=== PATIENT | female | born 1990 | race Asian ===

== ENCOUNTER 2020-11-09 11:36 | Outpatient (REF) | payer OTHER, SELFPAY ==
--- NOTE | 2020-11-09 11:43 | XR_ITS ---
EXAMINATION: XR HIP, RIGHT CLINICAL INFORMATION: Right hip sprain. COMPARISON: None TECHNIQUE: AP pelvis and 2 views of the right hip. FINDINGS: AP PELVIS: There is normal symmetry of bilateral hip joints and SI joints. No visible fracture, dislocation or bony erosive changes. RIGHT HIP: AP and frog-leg views right hip reveal maintained right hip joint space. No fracture or bony erosive changes or spurring. The soft tissues are normal. XR/XR hip RT w PEL1V IMPRESSION: Unremarkable AP pelvis and right hip exam.
== END 2020-11-09 11:37 | disposition home or self-care (01) ==
LOC: HO.XRAY 11:36
PROVIDERS: PCP Internal Medicine; Visit Provider Internal Medicine
DX: S73.101A Unspecified sprain of right hip, initial encounter (principal)
CPT/HCPCS: 73502

== ENCOUNTER → 2022-04-16 15:05 | Outpatient (BNVA) | payer OTHER, SELFPAY | PROVIDERS: PCP Internal Medicine; Visit Provider Nurse Practitioner Family | DX: O99.891 Other specified diseases and conditions complicating pregnancy (principal); M54.16 Radiculopathy, lumbar region; M46.1 Sacroiliitis, not elsewhere classified; M54.31 Sciatica, right side; G89.29 Other chronic pain; M25.551 Pain in right hip; Z3A.00 Weeks of gestation of pregnancy not specified | CPT/HCPCS: 99202 ==

== ENCOUNTER 2023-08-27 08:48 | Outpatient (REF) | payer OTHER, SELFPAY ==
[2023-08-27 09:59] LABS: Hemoglobin 7.8 g/dl (12.0-16.0); Mean Corpuscular HGB Conc 26.9 g/dl (31.0-35.0); Mean Corpuscular Hemoglobin 14.2 pg (27.0-33.0); NRBC Pct Auto 0.2 /100WBC (0.0-0.2); Red Blood Count 5.49 X10*6/uL (4.20-5.50); Red Cell Distribution Width 24.1 % (11.0-16.0)
[2023-08-27 10:02] LABS: Mean Corpuscular Volume 52.8 fL (80.0-98.0)
[2023-08-27 10:03] LABS: White Blood Count 11.9 X10*3/uL (4.8-10.8)
[2023-08-27 10:13] LABS: Appearance Urine Clear; Color Urine Yellow; Glucose Urine UA Negative (Negative); Leukocyte Esterase Urine Negative (Negative); Nitrite Urine Negative (Negative); PH 5.5 (5.0-9.0); Urine Blood Negative (Negative); Urine Ketones Negative (Negative); Urine Protein Negative (Neg-Trace)
[2023-08-27 10:45] LABS: Platelet Count 344 X10*3/uL (160-400)
[2023-08-27 10:51] LABS: Alanine Aminotransferase 15 U/L (0-31); Albumin Level 4.1 g/dL (3.5-5.0); Alkaline Phosphatase 60 U/L (39-117); Anion Gap 11 (12-20); Aspartate Amino Transferase 15 U/L (5-31); Bilirubin Direct 0.1 mg/dL (0.0-0.5); Bilirubin Total 0.3 mg/dL (0.0-1.0); Blood Urea Nitrogen 11 mg/dL (9-16); Calcium 9.2 mg/dL (8.4-10.2); Carbon Dioxide 23 mmol/L (22-29); Chloride 108 mmol/L (96-108); Estimated Glomerular Filt Rate > 60; Glucose Random 95 mg/dL (60-115); Potassium 4.1 mmol/L (3.3-5.1); Sodium 138 mmol/L (135-145); Total Protein 7.4 g/dL (6.5-8.0)
[2023-08-27 10:52] LABS: Thyroid Stimulating Hormone 1.93 uIU/mL (0.32-4.0)
[2023-08-27 10:59] LABS: Estimated Average Glucose 94 mg/dL; Hemoglobin A1c % 4.9 % (<6.0)
== END 2023-08-27 08:49 | disposition home or self-care (01) ==
LOC: HO.LAB 08:48
PROVIDERS: PCP Internal Medicine; Visit Provider Internal Medicine
DX: R73.9 Hyperglycemia, unspecified (principal)
CPT/HCPCS: 36415; 80048; 80076; 81003; 83036; 84443; 85027

== ENCOUNTER 2023-09-05 09:33 | Outpatient (AMB) | payer OTHER, SELFPAY ==
--- NOTE | 2023-09-05 09:39 | MHC.PC.OV ---
Vital Signs 09/05/23 09:40 Height 4 ft 11 in Weight 135 lb 4 oz BMI 27.3 BP 120/74 Blood Pressure Location Lt brachial Position Sitting Pulse 79 Pulse Source Pulse Oximeter Pulse Oximetry (%) 100 Oxygen Delivery Method Room Air Intake Visit Reasons: Lab Results Intake Note: Patient is here to follow up on Lab results. Teletype Technician Required: No Junior Programmer Analyst: Present Accompanied by: Spouse Allergies No Known Allergies Allergy (Verified 09/15/23 13:36) Medication List - Last Reconciled 09/15/23 by Golden Leon MD ferrous sulfate ER (Slow Fe) 137 mg PO .once a day hydrocortisone 2.5% 1 appl topical BID PRN omeprazole 20 mg PO DAILY Tobacco use date assessed: 09/05/23 Dental Screening Dental Screen Date: 09/05/23 Did you have a dental visit in the last 12 months?: No Did you have a dental problem in the last 6 months where you did not have access to dental care?: No Was dental information given to patient?: Patient has dentist HPI Lab Results HPI Details 33 yr old female presents to the office for a sick visit. Patient is accompanied by her . She had blood work done and would like to know the result. Complains of tiredness and dizziness. No nausea or vomiting. Monthly cycle is 8 days long. No clots. [facility] Surgical History No history of previous surgery Family History Mother No problems noted. Father No problems noted. Housing: House Alcohol intake: never Patient Tobacco Use Status: Never used Tobacco e-Cigarette/Vaping Use: Never Used Second Hand Smoke Exposure: No service: No Current occupational status: unemployed Cognitive needs: No Hearing needs: No Vision needs: No Questionnaire Thrive Questionnaire Date Thrive assessed: 04/04/23 CLARENCE-7 AMB Questionnaire CLARENCE-7 Date CLARENCE - 7 assessed: 04/04/23 Source: Developed by Drs. Gómez Lynn, Reyna Sanchez, Jorge Alberto Tinoco and colleagues, with an educational madison from [employer]. Physical exam (Primary Care) Vital Signs: Last Vital Signs Pulse 79 09/05/23 09:40 BP 120/74 09/05/23 09:40 Pulse Ox 100 09/05/23 09:40 Oxygen Delivery Method Room Air 09/05/23 09:40 BMI result Body Mass Index 27.3 Tobacco/Smoking Status: Tobacco use Status Tobacco use date assessed 09/05/23 09/05/23 09:55 Patient Tobacco Use Status Never used Tobacco 09/05/23 09:55 e-Cigarette/Vaping Use Never Used 09/05/23 09:55 Thrive Assessment: Date of Thrive Assessment Date Thrive assessed 04/04/23 09/05/23 09:55 Const General: cooperative and healthy appearing Nutritional Appearance: well nourished Orientation/consciousness: patient oriented x3 Limitations: no limitations HENMT Head: Yes normal to inspection Eyes General: appearance normal, both eyes and all related structures Neck Neck: Yes normal visual inspection Chest Chest palpation & inspection: normal palpation of entire chest wall Resp Effort & Inspection: normal respiratory effort Neuro General: patient oriented x3 Office Procedures Flu Questionnaire Does the patient have a severe egg allergy?: No Does the patient have severe life threatening allergies?: No Does the patient have a fever or illness today?: No Has the patient ever had Guillain-[place] Syndrome?: No Has the patient ever had any past reaction to a flu shot?: No Immunizations flu vacc [id number] 6mos up(PF) 60 mcg(15 mcgx4)/0.5 mL IM syringe Performing Provider: Golden Leon MD Performing Location: [facility] Administered by: LUL Mcmahon on 09/05/23 10:20 Dose Route Admin Location Dispensed Lot Number Expiration Date NDC Hydraulic Jack Mechanic 0.5 mL IM Left Deltoid 0.5 mL [id number] 04/19/24 91376-433-09 [employer] [place] VIS Given Date VIS Provided VIS Publication Date 09/05/23 Single Vaccine 21 Eligibility Eligibility Date Funding Source Not [facility] Eligible 09/05/23 Private Assessment and Plan Assessment & Plan (1) Hyperglycemia: Code(s): R73.9 - Hyperglycemia, unspecified Plan: A1c is checked. No evidence of DM. (2) Anemia: Code(s): D64.9 - Anemia, unspecified Plan: Low iron. Would benefit from iron infusion. Referral to financial services technician made. Orders: Orders Influenza [id number] Immunization 09/05/23 Z23 - Encounter for immunization Coding Level of Care Code Est Pt Level 4 (14429) Diagnoses Hyperglycemia R73.9 Anemia D64.9
[2023-09-05 09:40] VITALS: BP 120/74; PULSE 79; O2SAT 100; BMI 27.3
== END 2023-09-05 11:19 | disposition home or self-care (01) ==
PROVIDERS: PCP Internal Medicine; Visit Provider Internal Medicine
DX: Z23 Encounter for immunization (principal)
CPT/HCPCS: 90471; 90686; 99214

== ENCOUNTER → 2023-09-17 13:00 | Outpatient (BNV) | payer OTHER, SELFPAY | PROVIDERS: PCP Internal Medicine; Visit Provider Internal Medicine Medical Oncology | DX: O99.019 Anemia complicating pregnancy, unspecified trimester (principal); Z3A.24 24 weeks gestation of pregnancy | CPT/HCPCS: 99204; 99213 ==

== ENCOUNTER 2023-09-30 08:36 | Outpatient (REF) | payer OTHER, SELFPAY | END 2023-09-30 08:37 | disposition home or self-care (01) | LOC: HO.MDS 08:36 | PROVIDERS: Visit Provider Internal Medicine Medical Oncology | DX: D50.8 Other iron deficiency anemias (principal) | CPT/HCPCS: 96365; 96375; J1200; J1439 ==

== ENCOUNTER 2024-02-04 10:10 | Outpatient (AMB) | payer OTHER, SELFPAY ==
--- NOTE | 2024-02-04 10:13 | MHC.OFFVIS ---
Intake Vital Signs 02/04/24 10:14 Height 5 ft Weight 134 lb 7.712 oz BMI 26.3 BP 100/62 Blood Pressure Location Lt brachial Position Sitting Pulse 77 Pulse Source Pulse Oximeter Pulse Oximetry (%) 99 Oxygen Delivery Method Room Air Intake Visit Reasons: Cough Intake Note: pt is here for chest congestion and states it is tight in there Long Winder Tender Required: No Allergies No Known Allergies Allergy (Verified 02/04/24 10:18) Medication List - Last Reconciled 02/04/24 by Tello Lockwood MD ferrous sulfate ER (Slow Fe) 137 mg PO .once a day omeprazole 20 mg PO DAILY Do you need a note to return to daycare/school/sports/work: No HPI Cough HPI Details 33 years old female , of [place] origin, who has been here in [facility] for the last 2-3 years. 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 Generally healthy but lately was found to have mild anemia. She has history of intermittent bouts of cough since about 8 or 9 years ago. Back in [place] on she was told that she may have an asthma variant. At 1 time she was prescribed a bronchodilator inhaler which she used only a few times. Cough comes off and on, and she does not know of any precipitating factors. Sometime cough is associated with chest congestion and discomfort. At present she has discomfort in the left upper chest to but not associated with cough. The discomfort is in the left costochondral area, The only possible reason seems that she has to corn picker her daughter frequently. When she has cough which is mostly nonproductive, and not associated with wheezing. Patient is nonsmoker. She can not identify any specific allergies. She does have history of GERD symptoms which are being treated with omeprazole. She is not prone to have recurrent respiratory infections. ON LICENSE OF [facility] Medical History Cough Chest pain Surgical History No history of previous surgery Family History Mother No problems noted. Father No problems noted. Social History Housing: House Alcohol intake: never Patient Tobacco Use Status: Never used Tobacco e-Cigarette/Vaping Use: Never Used Second Hand Smoke Exposure: No service: No Current occupational status: unemployed Cognitive needs: No Hearing needs: No Vision needs: No Review of Systems Const All systems reviewed & are unremarkable except as noted in HPI and below Eyes Reports no additional complaints ENT Reports no additional complaints Card Reports chest pain (Nonspecific in left upper chest), Denies syncope, Denies rapid heart rate and Denies irregular heart rhythm Resp Reports as per HPI GI Reports heartburn (Being treated with omeprazole) Reports no additional complaints Musc Reports no additional complaints Skin/Breast Reports system reviewed and no additional complaints, except as documented Neuro Reports no additional complaints and Denies syncope Psych Reports no additional complaints Endo Reports no additional complaints Jozef/Lymph Reports no additional complaints Aller/Immun Reports no additional complaints Physical Exam Vital Signs: Last Vital Signs Pulse 77 02/04/24 10:14 BP 100/62 02/04/24 10:14 Pulse Ox 99 02/04/24 10:14 Oxygen Delivery Method Room Air 02/04/24 10:14 BMI result Body Mass Index 26.3 Const General: healthy appearing, comfortable, no acute distress, alert and awake Orientation/consciousness: patient oriented x3 HEENT Head: Yes normal to inspection General nose exam: No nasal polyps present and No nasal discharge present Face and sinus: Yes sinuses nontender Mouth: oropharynx normal Throat: Yes posterior oropharynx normal Eyes General: appearance normal, both eyes and all related structures Neck Neck: Yes normal visual inspection, Yes no lymphadenopathy, Yes trachea midline and Yes no JVD Thyroid: Thyroid normal Chest Chest palpation & inspection: normal inspection of the chest, normal palpation of entire chest wall and no tenderness Resp Effort & Inspection: normal respiratory effort Auscultation: clear to auscultation bilaterally, no crackles and no wheezes Cardio Palpation: normal PMI Rate: regular rate Rhythm: regular rhythm Heart sounds: no gallops and no murmurs Peripheral pulses: Peripheral pulses 2+ throughout GI Palpation (GI): Soft to palpation, nontender, No hepatosplenomegaly present and no masses Auscultation: normal bowel sounds Back/Spine/Pelvis Thoracic/Lumbar Spine: thoracic and lumbar spine normal to inspection Skin General skin exam: no rashes or lesions noted Neuro General: patient oriented x3 and no focal motor deficits Cranial nerves: Yes CN's II-XII intact bilaterally Extrem General: Yes normal to inspection, Yes no clubbing, cyanosis or edema and Yes no calf tenderness Psych Speech and movement: Normal speech and movement present Assessment & Plan Assessment & Plan (1) Chest pain: Comment: Nonspecific discomfort in left pectoral area, probably secondary to cost 2 chondral strain. Not very symptomatic at this time. Code(s): R07.9 - Chest pain, unspecified Plan: Explained about the nature of this problem. Advised to refrain from lifting heavy objects. May use warm packs locally 2 or 3 times a day as needed. CHEST X-RAY IS ORDERED TO RULE OUT ANY UNDERLYING CHEST ABNORMALITY. (2) Cough: Comment: CHRONIC INTERMITTENT COUGH, MOST LIKELY ASTHMA VARIANT. Explained to the patient thoroughly. Code(s): R05.9 - Cough, unspecified Plan: PULMONARY FUNCTION TEST TO RULE OUT ANY BRONCHOSPASM. WILL DECIDE ABOUT TREATMENT PLAN AFTER THE PFT. Orders: Orders XR chest 2V Today R05.9 - Cough, unspecified, R07.9 - Chest pain, unspecified PFT pulmonary function test Today R05.9 - Cough, unspecified, R07.9 - Chest pain, unspecified Coding Level of Care Code New Pt Level 3 (00777) Diagnoses Chest pain R07.9 Cough R05.9
[2024-02-04 10:14] VITALS: BP 100/62; PULSE 77; O2SAT 99; BMI 26.3
== END 2024-02-04 10:32 | disposition home or self-care (01) ==
PROVIDERS: PCP Internal Medicine; Visit Provider Internal Medicine
DX: R07.9 Chest pain, unspecified (principal); R05.9 Cough, unspecified
CPT/HCPCS: 99203

== ENCOUNTER 2024-02-04 10:10 | Outpatient (REF) | payer OTHER, SELFPAY | END 2024-02-04 10:11 | disposition home or self-care (01) | LOC: HO.XRAY 10:10 | PROVIDERS: PCP Internal Medicine; Visit Provider Internal Medicine | DX: R07.9 Chest pain, unspecified (principal); R05.9 Cough, unspecified | CPT/HCPCS: 99202 ==

== ENCOUNTER 2024-03-25 14:17 | Outpatient (AMB) | payer OTHER, SELFPAY ==
--- NOTE | 2024-03-25 14:24 | A.OFFPC_ITS ---
Vital Signs 03/25/24 14:27 Height 5 ft Weight 138 lb 6 oz BMI 27.0 BP 100/62 Blood Pressure Location Lt brachial Position Sitting Pulse 94 Pulse Source Pulse Oximeter Pulse Oximetry (%) 98 Oxygen Delivery Method Room Air Intake Visit Reasons: L ARM PAIN/CP/CARDIO REFERRAL/NEEDS PHQ9 Intake Note: Patient is here to follow up on left arm pain, Tracer Lathe Set Up Operator Required: No Insurance Commissioner: Present Accompanied by: Spouse Allergies No Known Allergies Allergy (Verified 03/25/24 16:03) Medication List - Last Reconciled 03/25/24 by Golden Leon MD ferrous sulfate ER (Slow Fe) 45 mg (0.3285 x 137 mg (45 mg iron)) PO DAILY ferrous sulfate ER (Slow Fe) 137 mg PO .once a day folic acid 0.4 mg PO DAILY omeprazole 20 mg PO DAILY Tobacco use date assessed: 03/25/24 Dental Screening Dental Screen Date: 03/25/24 Did you have a dental visit in the last 12 months?: No Did you have a dental problem in the last 6 months where you did not have access to dental care?: No Was dental information given to patient?: Patient has dentist HPI L ARM PAIN/CP/CARDIO REFERRAL/NEEDS PHQ9 HPI Details 33-year-old female presents to the [facility] for a sick visit. Patient reports some stiffness in the left arm. Unrelated to exercise. Happens once or twice a week. Patient was apprehensive that it could be of cardiac etiology. No shortness of breath or palpitations. Recently seen by a chief nursing officer for iron deficiency anemia. Patient could not tolerate iron infusion. Now taking iron medications. Patient is 3 months . [facility] Medical History Cough Chest pain Surgical History No history of previous surgery Family History Mother No problems noted. Father No problems noted. Social History Housing: House Alcohol intake: never Patient Tobacco Use Status: Never used Tobacco e-Cigarette/Vaping Use: Never Used Second Hand Smoke Exposure: No service: No Current occupational status: unemployed Cognitive needs: No Hearing needs: No Vision needs: No Questionnaire PHQ-9 Over the last 2 weeks, how often have you been bothered by any of the following problems? 1. Little interest or pleasure in doing things: not at all 2. Feeling down, depressed, or hopeless: not at all 3. Trouble falling or staying asleep, or sleeping too much: not at all 4. Feeling tired or having little energy: not at all 5. Poor appetite or overeating: not at all 6. Feeling bad about yourself - or that you are a failure or have let yourself or your family down: not at all 7. Trouble concentrating on things, such as reading the newspaper or watching television: not at all 8. Moving or speaking so slowly that other people could have noticed. Or the opposite - being so fidgety or restless that you have been moving around a lot more than usual: not at all 9. Thoughts that you would be better off or of hurting yourself in some way: not at all Total score: 0 Depression Screening Interpretation: Negative Depression Screening Done: Yes Source: Developed by Drs. Gómez Lynn, Reyna Sanchez, Jorge Alberto Tinoco and colleagues, with an educational madison from [employer]. Thrive Questionnaire Date Thrive assessed: 03/25/24 I am a: Patient What is your living situation today?: I have a steady place to live Within the past 12 months, did the food you bought not last and you didn't have the money to get more?: Never true Within the past 12 months, did you worry whether your food would run out before you got money to buy more?: Never true Do you have trouble paying for medicines?: No Do you have trouble getting transportation to medical appointments?: No Do you have trouble paying your heating and electricity bill?: No Do you have trouble taking care of your child, family member or friend?: No Do you have trouble with day-to-day activities such as bathing, preparing meals, shopping, managing finances, etc.?: No Are you currently unemployed and looking for a job?: No Are you interested in more education?: No Currently or been in a relationship where the following occur: no concerns reported THRIVE Score: 0 AUDIT C Alcohol Use Questionnaire (AUDIT-C) 1. How often do you have a drink containing alcohol?: Never Total Score: 0 CLARENCE-7 AMB Questionnaire CLARENCE-7 Date CLARENCE - 7 assessed: 03/25/24 Feeling nervous, anxious, or on edge: 0 = Not at all Not being able to stop or control worryin = Not at all Worrying too much about different things: 0 = Not at all Trouble relaxin = Not at all Being so restless that it is hard to sit still: 0 = Not at all Becoming easily annoyed or irritable: 0 = Not at all Feeling afraid as if something awful might happen: 0 = Not at all Total CLARENCE-7 score (0-4 normal; 5-9 mild; 10-14 moderate; 15-21 severe): 0 Source: Developed by Drs. Gómez Lynn, Reyna Sanchez, Jorge Alberto Tinoco and colleagues, with an educational madison from [employer]. Physical exam (Primary Care) Vital Signs: Last Vital Signs Pulse 94 03/25/24 14:27 BP 100/62 03/25/24 14:27 Pulse Ox 98 03/25/24 14:27 Oxygen Delivery Method Room Air 03/25/24 14:27 BMI result Body Mass Index 27.0 Tobacco/Smoking Status: Tobacco use Status Tobacco use date assessed 03/25/24 03/25/24 14:27 Patient Tobacco Use Status Never used Tobacco 03/25/24 14:27 e-Cigarette/Vaping Use Never Used 03/25/24 14:27 PHQ-9: PHQ-9 Score PHQ-9: Total score 0 03/25/24 14:27 Depression Screening Interpretation: Negative Thrive Assessment: Date of Thrive Assessment Date Thrive assessed 03/25/24 03/25/24 14:27 Currently or been in a relationship where the following occur: no concerns reported Const General: cooperative and healthy appearing Nutritional Appearance: well nourished Orientation/consciousness: patient oriented x3 Limitations: no limitations HENMT Head: Yes normal to inspection Eyes General: appearance normal, both eyes and all related structures Neck Neck: Yes normal visual inspection Chest Chest palpation & inspection: normal palpation of entire chest wall Resp Effort & Inspection: normal respiratory effort Neuro General: patient oriented x3 Assessment and Plan Assessment & Plan (1) Left forearm pain: Code(s): M79.632 - Pain in left forearm Plan: Very unlikely cardiac etiology...Reassurance Medications: Refilled omeprazole 20 mg PO DAILY 90 caps 1RF Coding Level of Care Code Est Pt Level 3 (45577) Complex EM visit Add On G2211 Diagnoses Left forearm pain M79.632
[2024-03-25 14:27] VITALS: BP 100/62; PULSE 94; O2SAT 98; BMI 27.0
== END 2024-03-25 16:17 | disposition home or self-care (01) ==
PROVIDERS: PCP Internal Medicine; Visit Provider Internal Medicine
DX: M79.632 Pain in left forearm (principal)
CPT/HCPCS: 99213; G2211

== ENCOUNTER 2024-04-07 | Outpatient (REF) | payer OTHER, SELFPAY | END 2024-04-07 00:01 | disposition home or self-care (01) | LOC: HO.RESP | PROVIDERS: PCP Internal Medicine; Visit Provider Internal Medicine | DX: R07.9 Chest pain, unspecified (principal); R05.9 Cough, unspecified | CPT/HCPCS: 94010; 94640; 99211 ==

== ENCOUNTER 2024-04-07 10:12 | Outpatient (AMB) | payer OTHER, SELFPAY ==
[2024-04-07 11:03] VITALS: BMI 27.3
--- NOTE | 2024-04-07 11:03 | A.OFFVIS_ITS ---
Vital Signs 04/07/24 11:03 Height 5 ft Weight 139 lb 15.896 oz BMI 27.3 Intake Visit Reasons: Brian Allergies No Known Allergies Allergy (Verified 04/07/24 11:04) Medication List - Last Reconciled 04/07/24 by Karen Carlos LPN ferrous sulfate ER (Slow Fe) 45 mg (0.3285 x 137 mg (45 mg iron)) PO DAILY ferrous sulfate ER (Slow Fe) 137 mg PO .once a day folic acid 0.4 mg PO DAILY omeprazole 20 mg PO DAILY PFSH Medical History Cough Chest pain Surgical History No history of previous surgery Family History Mother No problems noted. Father No problems noted. Social History Housing: House Alcohol intake: never Patient Tobacco Use Status: Never used Tobacco e-Cigarette/Vaping Use: Never Used Second Hand Smoke Exposure: No service: No Current occupational status: unemployed Cognitive needs: No Hearing needs: No Vision needs: No Physical Exam Vital Signs: BMI result Body Mass Index 27.3 Office Procedures Nebulizer Treatment Nebulizer Treatment [id number] RX initial, or Nebulizer Subsequent Treatment Spirometry Testing Spirometry Comments: pre and post spirometry done, results given to Dr. Lockwood results scanned to her chart. 16280- Spirometry Office Meds albuterol sulfate 2.5 mg/3 mL (0.083 %) solution for nebulization Performing Provider: Tello Lockwood MD Performing Location: [facility] Administered by: Karen Carlos LPN on 04/07/24 11:04 Dose Route Admin Location Dispensed Lot Number Expiration Date [facility] Appliance [employer] Counter Clerk 2.5 mg inhalation 3 mL [id number] 01/17/25 8562-9301-05 BRIAN Comments: Assessment & Plan Assessment & Plan (1) Cough: Comment: PATIENT WAS HERE ONLY FOR THE SPIROMETRY TEST . Code(s): R05.9 - Cough, unspecified Category: Medical Plan: ADVISED TO KEEP HER APPOINTMENT FOR THE OFFICE VISIT Orders: Orders AMB Spirometry Testing 04/07/24 R05.9 - Cough, unspecified AMB Nebulizer Treatment 04/07/24 R05.9 - Cough, unspecified Coding Level of Care Code Established Pt Est Pt Level 1 (32782) Patient Type Established Diagnoses Cough R05.9 CPT Codes Nebulizer Treatment - Nebulizer Treatment, initial or subsequent: 23108- Nebulizer/MDI RX initial, or Nebulizer Subsequent Treatment ([id number]) Spirometry - CPT: 14646- Spirometry ([id number]) Comment NURSE VISIT ONLY
== END 2024-04-07 10:54 | disposition home or self-care (01) ==
PROVIDERS: PCP Internal Medicine; Visit Provider Internal Medicine
DX: R05.9 Cough, unspecified (principal)
CPT/HCPCS: 94010

== ENCOUNTER 2024-04-21 10:08 | Outpatient (AMB) | payer OTHER, SELFPAY ==
--- NOTE | 2024-04-21 10:15 | MHC.OFFVIS ---
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 SHE DID HAVE SPIROMETRY BEFORE. AND AFTER BRONCHODILATORS HER MAIN COMPLAINT IS COUGH WHICH IS DEFINITELY MUCH LESS THAN BEFORE. NOW SHE JUST HAS MILD INTERMITTENT COUGH WHICH SEEM TO BE RELATED TO MILD NASAL CONGESTION AND POSTNASAL DISCHARGE. SHE ALSO HAS SOME DISCOMFORT IN THE MID STERNAL AREA AT THE TIME OF COUGH. [facility] Medical History Cough Chest pain Surgical History No history of previous surgery Family History Mother No problems noted. Father No problems noted. Social History Housing: House Alcohol intake: never Patient Tobacco Use Status: Never used Tobacco e-Cigarette/Vaping Use: Never Used Second Hand Smoke Exposure: No service: No Current occupational status: unemployed Cognitive needs: No Hearing needs: No Vision needs: No Review of Systems Const All systems reviewed & are unremarkable except as noted in HPI and below Eyes Reports no additional complaints ENT Reports no additional complaints Card Reports chest pain (Nonspecific in left upper chest), Denies syncope, Denies rapid heart rate and Denies irregular heart rhythm Resp Reports as per HPI GI Reports heartburn (Being treated with omeprazole) Reports no additional complaints Musc Reports no additional complaints Skin/Breast Reports system reviewed and no additional complaints, except as documented Neuro Reports no additional complaints and Denies syncope Psych Reports no additional complaints Endo Reports no additional complaints Jozef/Lymph Reports no additional complaints Aller/Immun Reports no additional complaints Physical Exam Vital Signs: Last Vital Signs Pulse 86 04/21/24 10:16 BP 102/54 L 04/21/24 10:16 Pulse Ox 99 04/21/24 10:16 Oxygen Delivery Method Room Air 04/21/24 10:16 BMI result Body Mass Index 27.3 Const General: healthy appearing, comfortable, no acute distress, alert and awake Orientation/consciousness: patient oriented x3 HEENT Head: Yes normal to inspection General nose exam: No nasal polyps present and No nasal discharge present Face and sinus: Yes sinuses nontender Mouth: oropharynx normal Throat: Yes posterior oropharynx normal Eyes General: appearance normal, both eyes and all related structures Neck Neck: Yes normal visual inspection, Yes no lymphadenopathy, Yes trachea midline and Yes no JVD Thyroid: Thyroid normal Chest Chest palpation & inspection: normal inspection of the chest, normal palpation of entire chest wall and no tenderness Resp Effort & Inspection: normal respiratory effort Auscultation: clear to auscultation bilaterally, no crackles and no wheezes Cardio Palpation: normal PMI Rate: regular rate Rhythm: regular rhythm Heart sounds: no gallops and no murmurs Peripheral pulses: Peripheral pulses 2+ throughout GI Palpation (GI): Soft to palpation, nontender, No hepatosplenomegaly present and no masses Auscultation: normal bowel sounds Back/Spine/Pelvis Thoracic/Lumbar Spine: thoracic and lumbar spine normal to inspection Skin General skin exam: no rashes or lesions noted Neuro General: patient oriented x3 and no focal motor deficits Cranial nerves: Yes CN's II-XII intact bilaterally Extrem General: Yes normal to inspection, Yes no clubbing, cyanosis or edema and Yes no calf tenderness Psych Speech and movement: Normal speech and movement present Results Reviewed Results Reviewed: SPIROMETRY BEFORE AND AFTER, BRONCHODILATOR THERAPY SHOWS FVC 65% INDICATING MILD RESTRICTIVE PATTERN. THERE IS NO EVIDENCE OF OBSTRUCTIVE AIRWAY DISORDER. THERE WAS NO SIGNIFICANT RESPONSE TO BRONCHODILATOR THERAPY. Assessment & Plan Assessment & Plan (1) Cough: Comment: COUGH. IS DEFINITELY MUCH LESS THAN BEFORE SHE PROBABLY HAS A LOW-GRADE ALLERGIC RHINITIS, SHE CLAIMS THAT COUGH IS USUALLY WHEN SHE IS IN AIR-CONDITIONED SPACE. SPIROMETRY DOES NOT SHOW ANY OBSTRUCTIVE DISORDER. Code(s): R05.9 - Cough, unspecified Category: Medical Plan: TOLD THAT HER COUGH MAY BE ALLERGIC IN NATURE DUE TO ENVIRONMENTAL IRRITANTS. SHE CAN USE OTC COUGH MEDS NEEDED. MAY USE ALBUTEROL HFA 1 OR 2 PUFFS Q 6 HOURS P.R.N. IF THE COUGH BECOMES MORE PERSISTENT (2) Chest pain: Comment: Nonspecific discomfort in middle of the chest, related to cough., . Probably due to sternal strain Code(s): R07.9 - Chest pain, unspecified Category: Medical Plan: Patient reassured. No need to use any pain med. Revisit only p.r.n.. Coding Level of Care Code Est Pt Level 3 (88900) Diagnoses Cough R05.9 Chest pain R07.9
[2024-04-21 10:16] VITALS: BP 102/54; PULSE 86; O2SAT 99; BMI 27.3
== END 2024-04-21 10:46 | disposition home or self-care (01) ==
PROVIDERS: PCP Internal Medicine; Visit Provider Internal Medicine
DX: R05.9 Cough, unspecified (principal); R07.9 Chest pain, unspecified
CPT/HCPCS: 99213

== ENCOUNTER → 2024-04-21 10:08 | Outpatient (BNVA) | payer OTHER, SELFPAY | PROVIDERS: PCP Internal Medicine; Visit Provider Internal Medicine | DX: R05.9 Cough, unspecified (principal); R07.9 Chest pain, unspecified | CPT/HCPCS: 99212 ==